=== PATIENT | female | born 1950 | race Caucasian/White ===

== ENCOUNTER 2022-01-06 08:03 | Emergency (ER) | payer MEDICARE, SELFPAY ==
[2022-01-06 08:48] VITALS: BP 118/71; PULSE 72; RESP 19; TEMP 36.4; O2SAT 100; BMI 19.2
--- NOTE | 2022-01-06 12:26 | DI.RAD.S_ITS ---
PROCEDURE: XR WRIST RT MIN 3V INDICATIONS: foosh TECHNIQUE: Full views of the wrist were acquired. COMPARISON: None. FINDINGS: Bones: No fractures or dislocations. Suspect old injury in trapezium and trapezoid and possible is postsurgical change. Vqezkpdr-aj-qclhxp degenerative joint disease, most pronounced at the triscaphe joint and the 1st carpometacarpal joint. Osteopenia. Scaphoid view: Scaphoid is intact. Soft tissues: No suspicious soft tissue calcifications. IMPRESSION: 1. Suspect old injury in trapezium and trapezoid. Recommend clinical correlation. 2. No acute osseous abnormalities. If clinical symptoms persist or clinical suspicion for pathology is high, a repeat examination in 7-10 days, or advanced imaging such as CT or MRI is suggested for further evaluation. 3. Cincsabc-qw-gacufq degenerative joint disease. 4. Osteopenia. Dictated by: Tricia Lawler M.D. on 01/06/2022 at 14:06 Approved by: Tricia Lawler M.D. on 01/06/2022 at 14:08
--- NOTE | 2022-01-06 12:26 | DI.CT.S_ITS ---
PROCEDURE: CT HEAD/BRAIN WO CON INDICATIONS: trauma TECHNIQUE: Noncontrast 4.5 mm thick angled axial sections acquired from the foramen magnum to the vertex, with coronal and sagittal reformats. For radiation dose reduction, the following was used: automated exposure control, adjustment of mA and/or kV according to patient size. COMPARISON: [facility], CT, CT FACIAL BONES WO CON, 01/06/2022, 13:14. [facility], CR, XR WRIST RT MIN 3V, 01/06/2022, 12:27. FINDINGS: Image quality: Excellent. CSF spaces: Basal cisterns are patent. No extra-axial fluid collections. The ventricles are symmetric in size and shape. Brain: No intracranial bleeds or masses. There is cerebral volume loss for age, with resultant ventricular and sulcal prominence. There are periventricular and deep white matter chronic small vessel ischemic changes. There is intracranial internal carotid artery atherosclerosis. Skull and face: Calvarium and visualized facial bones appear intact, without suspicious lesions. Sinuses: Visualized sinuses and mastoids are clear. IMPRESSION: No acute intracranial hemorrhage is seen. No acute intracranial process is seen. Dictated by: Amarjit Angeles M.D. on 01/06/2022 at 13:02 Approved by: Amarjit Angeles M.D. on 01/06/2022 at 13:03
--- NOTE | 2022-01-06 12:26 | DI.CT.S_ITS ---
PROCEDURE: CT FACIAL BONES WO CON INDICATIONS: trauma to nares TECHNIQUE: Noncontrast 2.5 mm thick axial images acquired from the mandible through the frontal sinuses, with coronal and sagittal reformatting. For radiation dose reduction, the following was used: automated exposure control, adjustment of mA and/or kV according to patient size. COMPARISON: [facility], CT, CT HEAD/BRAIN WO CON, 01/06/2022, 13:14. [facility], CR, XR WRIST RT MIN 3V, 01/06/2022, 12:27. FINDINGS: Image quality: Excellent. Bones and teeth: Minimally displaced nasal bone fractures are seen. No nasal septal fracture is seen. Orbital church are intact. Sinus church show no fracture or deformity. Visualized portions of the mandible demonstrate no fractures or subluxation. Zygomatic arches are intact. Pterygoid plates are intact. Visualized portions of the skull base and auditory canals are intact. Focal C5-C6 degenerative change is seen, with milder degenerative changes seen elsewhere. Center that Sinuses: Paranasal sinuses are aerated, without fluid levels, mucosal thickening, or mucoceles. Mastoid air cells are aerated. Bilateral taylor bullosa are seen, left larger than right. The left ostiomeatal complex is narrowed, yet remains patent. Soft tissues: Mild soft tissue swelling can be seen of the nose. Vascular: Visualized vascular structures appear normal in the absence of contrast. Bony vascular foramina and canals are intact. IMPRESSION: Minimally displaced nasal bone fractures. Mild associated soft tissue swelling of the nose can be seen. Dictated by: Amarjit Angeles M.D. on 01/06/2022 at 12:58 Approved by: Amarjit Angeles M.D. on 01/06/2022 at 13:01
--- NOTE | 2022-01-06 12:27 | ED.FALL ---
HPI - Fall <AL Roblero - Last Filed: 01/06/22 19:09> General Chief Complaint: Fall Stated Complaint: Fall- hit face on cement curb- no thinners Time Seen by Provider: 01/06/22 12:08 Source: patient and family Mode of arrival: Family Vehicle History of Present Illness HPI Narrative: This is a 71-year-old female with history of bird, Patel's esophagus, achalasia, Cheng fundoplication last year who presents to the emergency department complaining of tripping and falling onto concrete injuring her face with a laceration on her anterior nose over the nasal bone/cartilage junction. Patient is able to breathe with her nares. She endorses having a headache, sensitivity to light and sound, her son states that she was mildly altered after she hit her head but this has resolved. She denies any neck pain, is not on any anticoagulants, denies any loss of consciousness, endorses nausea without vomiting. Denies any recent illness. Patient's last tetanus was in 2019. Patient lives in [facility] and is scheduled to go home tomorrow now. Related Data Previous Rx's Medication Instructions Recorded acetaminophen 325 mg tablet 650 mg PO Q6H PRN pain #30 tabs 01/06/22 (Tylenol) ketorolac 10 mg tablet 10 mg PO TID PRN pain 5 days #14 01/06/22 tabs mupirocin 2 % topical ointment 1 applic topical DAILY PRN 01/06/22 laceration #15 grams Allergies Allergy/AdvReac Type Severity Reaction Status Date / Time No Known Drug Allergies Allergy Verified 01/06/22 08:47 Review of Systems <AL Roblero - Last Filed: 01/06/22 19:09> Review of Systems Narrative: Review of systems is negative for acute abnormalities unless otherwise noted in HPI Patient History <AL Roblero - Last Filed: 01/06/22 19:09> Social History Smoking Status: Never smoker Smoking Status: Never smoker alcohol intake frequency: 0-2 drinks per day Substance Use Type: marijuana Exam <AL Roblero - Last Filed: 01/06/22 19:09> Narrative Exam Narrative: Reviewed vitals signs and nursing notes. General: cooperative, comfortable, in no acute distress, well groomed HEENT: symmetrical facial expressions, moist mucous membranes, abrasion with small puncture/laceration to the bridge of her nose, mild edema to the distal tip of her nares, nares are patent without internal wound. No tenderness to maxillary or or middle bones, no tenderness to facial bone surrounding her nares, no tenderness over mastoids, no hemotympanum, EOMI, without nystagmus, PERRLA Cardiovascular: regular rate and rhythm, no peripheral edema, warm extremities Respiratory: normal effort, able to speak in complete sentences, without wheezing, stridor, or abnormal breath sounds. No retractions or tachypnea. GI: abdomen soft, nontender to palpation, nondistended, without masses, rebound tenderness or exquisite tenderness with exam. MSK: moves all extremities, neurovascularly intact, no weakness, normal tone Skin: brisk capillary refill, without pallor or erythema, small puncture verses laceration to the bridge of her nose, mild abrasion to her right palm, full range of motion of her right wrist, endorses pain with flexion extension, neurovascularly intact without open wound. Neuro: normal speech and cognition, A&O x3, ambulatory, clear speech Psych: mental status is grossly normal, congruent mood, normal affect, pleasant and cooperative Initial Vital Signs Initial Vital Signs: Vital Signs Temperature 97.5 F L 01/06/22 08:48 Pulse Rate 72 01/06/22 08:48 Respiratory Rate 19 01/06/22 08:48 Blood Pressure 118/71 01/06/22 08:48 Pulse Oximetry 100 01/06/22 08:48 Oxygen Delivery Method 01/06/22 08:48 <Tomasa Javed DO - Last Filed: 01/06/22 20:40> Initial Vital Signs Initial Vital Signs: Vital Signs Temperature 97.5 F L 01/06/22 08:48 Pulse Rate 72 01/06/22 08:48 Respiratory Rate 19 01/06/22 08:48 Blood Pressure 118/71 01/06/22 08:48 Pulse Oximetry 100 01/06/22 08:48 Oxygen Delivery Method 01/06/22 08:48 Procedures <AL Roblero - Last Filed: 01/06/22 19:09> Laceration Repair Laceration 1: Size (cm): 0.4 Description: flap Depth: simple, single layer Skin layer closed with: steri-strips Course <AL Roblero - Last Filed: 01/06/22 19:09> Orders Ordered: ED Orders 01/06/22 12:26 CT facial bones wo con Stat CT head/brain wo con Stat XR wrist RT min 3V Stat Discontinued Medications Acetaminophen (Acetaminophen 325 Mg Tablet) 650 mg PO NOW ONE Stop: 01/06/22 12:27 Last Admin: 01/06/22 12:48 Dose: 650 mg Documented By: JASMEET Bacitracin (Bacitracin Oint 0.9 Gm Pckt) 1 applic TOP NOW ONE Stop: 01/06/22 12:27 Last Admin: 01/06/22 12:50 Dose: 1 applic Documented By: JASMEET Ondansetron HCl (Ondansetron 4 Mg Odt) 4 mg SL NOW ONE Stop: 01/06/22 12:27 Last Admin: 01/06/22 12:48 Dose: 4 mg Documented By: JASMEET Vital Signs Vital signs: Vital Signs - 8 hr 01/06/22 08:48 Temperature 97.5 F L Pulse Rate 72 Respiratory Rate 19 Blood Pressure 118/71 Pulse Oximetry 100 Oxygen Delivery Method Room Air <Tomasa Javed DO - Last Filed: 01/06/22 20:40> Orders Ordered: ED Orders 01/06/22 12:26 CT facial bones wo con Stat CT head/brain wo con Stat XR wrist RT min 3V Stat Discontinued Medications Acetaminophen (Acetaminophen 325 Mg Tablet) 650 mg PO NOW ONE Stop: 01/06/22 12:27 Last Admin: 01/06/22 12:48 Dose: 650 mg Documented By: JASMEET Bacitracin (Bacitracin Oint 0.9 Gm Pckt) 1 applic TOP NOW ONE Stop: 01/06/22 12:27 Last Admin: 01/06/22 12:50 Dose: 1 applic Documented By: JASMEET Ondansetron HCl (Ondansetron 4 Mg Odt) 4 mg SL NOW ONE Stop: 01/06/22 12:27 Last Admin: 01/06/22 12:48 Dose: 4 mg Documented By: JASMEET Vital Signs Vital signs: Vital Signs - 8 hr 01/06/22 08:48 Temperature 97.5 F L Pulse Rate 72 Respiratory Rate 19 Blood Pressure 118/71 Pulse Oximetry 100 Oxygen Delivery Method Room Air MDM - Fall <Lakeisha Jones, [facility] - Last Filed: 01/06/22 19:09> Imaging Data CT scan - head: Radiologist's Impression: PROCEDURE:? CT HEAD/BRAIN WO CON ? INDICATIONS:? trauma ? TECHNIQUE:? Noncontrast 4.5 mm thick angled axial sections acquired from the foramen magnum to the vertex, with coronal and sagittal reformats.? For radiation dose reduction, the following was used:? automated exposure control, adjustment of mA and/or kV according to patient size.? ? COMPARISON:? [facility], CT, CT FACIAL BONES WO CON, 01/06/2022, 13:14.? [facility], CR, XR WRIST RT MIN 3V, 01/06/2022, 12:27. ? FINDINGS:? Image quality:? Excellent.? ? CSF spaces:? Basal cisterns are patent.? No extra-axial fluid collections.? The ventricles are symmetric in size and shape.? ? Brain:? No intracranial bleeds or masses.? There is cerebral volume loss for age, with resultant ventricular and sulcal prominence.? There are periventricular and deep white matter chronic small vessel ischemic changes.? There is intracranial internal carotid artery atherosclerosis.? ? Skull and face:? Calvarium and visualized facial bones appear intact, without suspicious lesions.? ? Sinuses:? Visualized sinuses and mastoids are clear.? ? ? IMPRESSION:? No acute intracranial hemorrhage is seen.? ? No acute intracranial process is seen.? ? ? Dictated by: Amarjit Angeles M.D. on 01/06/2022 at 13:02 ? ? Approved by: Amarjit Angeles M.D. on 01/06/2022 at 13:03 ? CT facial bones: Radiologist's Impression: PROCEDURE:? CT FACIAL BONES WO CON ? INDICATIONS:? trauma to nares ? TECHNIQUE:? Noncontrast 2.5 mm thick axial images acquired from the mandible through the frontal sinuses, with coronal and sagittal reformatting.? For radiation dose reduction, the following was used:? automated exposure control, adjustment of mA and/or kV according to patient size.? ? COMPARISON:? [facility], CT, CT HEAD/BRAIN WO CON, 01/06/2022, 13:14.? [facility], CR, XR WRIST RT MIN 3V, 01/06/2022, 12:27. ? FINDINGS:? Image quality:? Excellent.? ? Bones and teeth:? Minimally displaced nasal bone fractures are seen.? No nasal septal fracture is seen. ? Orbital church are intact.? Sinus church show no fracture or deformity.? Visualized portions of the mandible demonstrate no fractures or subluxation.? Zygomatic arches are intact.? Pterygoid plates are intact.? Visualized portions of the skull base and auditory canals are intact.? ? Focal C5-C6 degenerative change is seen, with milder degenerative changes seen elsewhere. ?Center that ? Sinuses:? Paranasal sinuses are aerated, without fluid levels, mucosal thickening, or mucoceles.? Mastoid air cells are aerated.? Bilateral taylor bullosa are seen, left larger than right.? The left ostiomeatal complex is narrowed, yet remains patent. ? Soft tissues:? Mild soft tissue swelling can be seen of the nose. ? Vascular:? Visualized vascular structures appear normal in the absence of contrast.? Bony vascular foramina and canals are intact.? ? IMPRESSION:? Minimally displaced nasal bone fractures.? Mild associated soft tissue swelling of the nose can be seen.? ? Dictated by: Amarjit Angeles M.D. on 01/06/2022 at 12:58 ? ? Approved by: Amarjit Angeles M.D. on 01/06/2022 at 13:01 ? Extremity x-ray #1: Radiologist's Impression: PROCEDURE:? XR WRIST RT MIN 3V ? INDICATIONS: foosh ? TECHNIQUE:? Full views of the wrist were acquired.? ? COMPARISON:? None. ? FINDINGS:? ? Bones:? No fractures or dislocations.? Suspect old injury in trapezium and trapezoid and possible is postsurgical change.? Evcdeahk-wr-bzlrsv degenerative joint disease, most pronounced at the triscaphe joint and the 1st carpometacarpal joint.? Osteopenia. ? Scaphoid view:? Scaphoid is intact. ? Soft tissues:? No suspicious soft tissue calcifications.? ? IMPRESSION:? ? 1. Suspect old injury in trapezium and trapezoid.? Recommend clinical correlation. 2. No acute osseous abnormalities.? If clinical symptoms persist or clinical suspicion for pathology is high, a repeat examination in 7-10 days, or advanced imaging such as CT or MRI is suggested for further evaluation. 3. Oafeiktw-et-jtycqd degenerative joint disease. 4. Osteopenia.? ? ? Dictated by: Tricia Lawler M.D. on 01/06/2022 at 14:06 ? ? Approved by: Tricia Lawler M.D. on 01/06/2022 at 14:08 ? MDM Narrative Medical decision making narrative: This is a pleasant 71-year-old female without significant medical history and is not on anticoagulants who had a fall and hit her face on a cement curb fracturing her nasal bones, with mild displacement. She did not have a loss of consciousness, after her injury she felt nauseated, her son states that she was mildly altered and this later resolved. When she came to the emergency department she had a headache, some nausea, sensitivity to light and sound. A CT of her head and brain is without any acute intracranial abnormality, her face CT without contrast shows minimally displaced nasal bone fractures with mild associated soft tissue swelling, her nares were patent on inspection without bleeding. She had a small laceration versus puncture wound to the bridge of her nose, this was cleaned with normal saline, her tetanus was up stated in 2019 so she did not need this. Wound closure with a Steri-Strip and covered with a Band-Aid, small opening at the top and bottom of the laceration for drainage. Patient was prescribed mupirocin ointment, she was given Tylenol and ketorolac in the emergency department for her headache as well as Zofran. She states that she feels much better and did not have any focal neuro deficits on exam. She endorses history of arthralgia of her cervical spine and her right wrist as she is right-handed, she fell onto her right palm and so she had a mild abrasion to the palm, this was cleaned as well. No bleeding, her right wrist x-ray shows suspect old injury of the trapezium and trapezoid, no acute osseous abnormalities, and moderate to severe degenerative joint disease with osteopenia. Discussed these findings with the patient, she was fitted in a Velcro wrist splint, encouraged to ice, elevate and take it easy and rest for the next few days. She will be flying back to [facility], I gave her information about concussions and discussed her symptoms with her. She likely has a concussion and understands her strict return precautions for any worsening or altered mental status. She declined needing any more antiemetics and felt ready to discharge home. Patient is appropriate and amenable to discharge home. Vital signs are stable on repeat examination is unremarkable. Patient has been informed of results. Patient has been given strict return to ER precautions for any new or worsening symptoms. Patient understands to follow up closely with outpatient providers as instructed. Patient understands plan and agrees to discharge home. All questions and concerns answered at this time. Discharge Plan Departure Patient Disposition: Home Clinical Impression: Fall Qualifiers: Encounter type: initial encounter Qualified Code(s): W19.XXXA - Unspecified fall, initial encounter Concussion Qualifiers: Encounter type: initial encounter Loss of consciousness presence/duration: without LOC Qualified Code(s): S06.0X0A - Concussion without loss of consciousness, initial encounter Closed fracture nasal bone Qualifiers: Encounter type: initial encounter Qualified Code(s): S02.2XXA - Fracture of nasal bones, initial encounter for closed fracture Right wrist sprain Qualifiers: Encounter type: initial encounter Qualified Code(s): S63.501A - Unspecified sprain of right wrist, initial encounter Laceration of face Qualifiers: Encounter type: initial encounter Qualified Code(s): S01.81XA - Laceration without foreign body of other part of head, initial encounter Instructions: Wrist Sprain, Nose Fracture, Concussion, DI for Laceration Repair-Skin Closure Strips Activity Restrictions/Additional Instructions: *You have been diagnosed with a fall, concussion, mildly displaced nasal bone fracture, and a small puncture wound to the anterior nares. Please use the topical mupirocin as needed, you can take Toradol every 6-8 hours with food and water with Tylenol 650 mg every 6 hours for. Please follow-up with your primary doctor at home and discuss this injury. Your last tetanus was in 2019 so you do not need another 1 today. It was a pleasure to meet you, I wish you safe travels, remember to limit your physical activity if symptoms of a concussion come on prioritize rest. *What to do: *Please continue to take your regular medications as directed. [x ] New medication prescriptions sent to your pharmacy: [[facility] ] [ ] New medication written as a paper prescription [ ] No new medications given *Please follow up with your primary care provider in 2-3 days, call for an appointment. Let them know you were seen in the Emergency Department and that we asked that you be seen for follow-up. We will electronically transmit a record of today's note if your PCP is in our system *If you do not have a primary care provider please contact [phone] to establish care with one of the [facility] primary care providers. *Return to Emergency Department if you should have any new, worsening, or concerning symptoms, such as [fever greater than 101F, chills, worsening pain, persistent vomiting or other bothersome symptoms]. Prescriptions: New ketorolac 10 mg tablet 10 mg PO TID PRN (Reason: pain) 5 Days Qty: 14 0RF mupirocin 2 % ointment 1 applic topical DAILY PRN (Reason: laceration) Qty: 15 0RF acetaminophen [Tylenol] 325 mg tablet 650 mg PO Q6H PRN (Reason: pain) Qty: 30 0RF Referrals: Miscellaneous,Doctor, MD [Primary Care Provider] - Visit Report Forms: Patient Portal/API <Tomasa Javed DO - Last Filed: 01/06/22 20:40> Cosign ED Attending Naomyature Attestation: I was immediately available in the department for consultation. Documentation has been reviewed.
[2022-01-06] MEDS: ACETAMINOPHEN 325 MG TABLET 650 MG PO (12:48)
[2022-01-06] MEDS: ONDANSETRON 4 MG ODT SL (12:48)
[2022-01-06] MEDS: BACITRACIN OINT 0.9 GM PCKT 1 APPLIC TOP (12:50)
== END 2022-01-06 14:53 | disposition home or self-care (01) ==
PROVIDERS: Emergency Provider Nurse Practitioner Critical Care Medicine
DX: S06.0X0A Concussion without loss of consciousness, initial encounter (principal); S02.2XXA Fracture of nasal bones, initial encounter for closed fracture; S63.501A Unspecified sprain of right wrist, initial encounter; S01.81XA Laceration without foreign body of other part of head, initial encounter; W18.30XA Fall on same level, unspecified, initial encounter
CPT/HCPCS: 70450; 70486; 73110; 99284